=== PATIENT | male | born 1955 | race Caucasian/White ===

== ENCOUNTER → 2018-12-25 | Outpatient (CLI) | payer OTHER ==
[~2018-12-25] MED LIST: Z.0.CRESTOR5 MG PO; Z.0.PANTOPRAZOLE SO4 PO
--- NOTE | 2018-12-28 08:30 | Diagnostic Imaging Report ---
#[id number] [facility] : 12/25/2018 Comparison is made to exam dated: 12/25/2018 mammogram - [facility]. Color flow and real-time ultrasound were performed on the entire right breast. -There is no cystic or solid mass seen. IMPRESSION: NEGATIVE There is no sonographic evidence of malignancy. Follow-up with ACR/ACS guidelines. Matthew Bar Jr., D.O. cw/:12/25/2018 13:00:22 Change House Attendant: ALEXIA BRUNER RDMS, [facility] letter sent: Normal Exam Ultrasound BI-RADS: 1 Negative
--- NOTE | 2018-12-28 08:30 | Diagnostic Imaging Report ---
#[id number] - MGDXBIL #MALE BILATERAL DIGITAL DIAGNOSTIC MAMMOGRAM WITH CAD: 12/25/2018 No prior exams were available for comparison. Current study was also evaluated with a Computer Aided Detection (CAD) system. There is asymmetry of the breast tissue in the right retroareolar region without definite mass seen. A focused breast ultrasound is suggested and will be performed today. No significant masses, calcifications, or other findings are seen in either breast. IMPRESSION: INCOMPLETE: NEEDS ADDITIONAL IMAGING EVALUATION Right breast asymmetry in the retroareolar region. Ultrasound is recommended and will be performed today. Matthew Bar Jr., D.O. cw/:12/25/2018 12:59:02 Apartment Maintenance Supervisor: Avani ROJAS(Jann)(M), [facility] letter sent: Additional Imaging Needed Mammogram BI-RADS: 0 Indeterminate
== END ==
LOC: MAMMO 09:04
PROVIDERS: ATTEND Internal Medicine
DX: N64.4 Mastodynia (principal)
CPT/HCPCS: 77066